=== PATIENT | female | born 1980 | race Caucasian/White ===

== ENCOUNTER 2018-02-21 10:59 | Emergency (ER) | payer OTHER ==
--- OUTSIDE RECORDS SUMMARY | 2018-02-21 11:26 | XMS REPORT | Continuity of Care Document ---
:1980 External Reference #:[id number] Author Name Betty Hampton M.D. Address [address] [place] [address] Care Team Providers Name Role Phone Megan Valdes MD Care Team Information Director Of Promotions Unavailable Megan Valdes MD Primary Care Physician Unavailable Payers Type Date Identification Numbers Payment Provider Subscriber Effective: 2016 Policy Number: [id number] [facility] Felecia Rojas Group Number: [id number] [id number] Group Name: [place] [address] PayID: [id number] Advance Directives Description No Information Available Problems Date Description Provider Status Onset: 11/19/2017 Exacerbation of moderate persistent Betty Hampton M.D. Active asthma Onset: 07/29/2017 Mild persistent asthma Betty Hampton M.D. Active Onset: 02/12/2017 Mild intermittent asthma Betty Hampton M.D. Active Onset: 02/12/2017 Chronic allergic conjunctivitis Betty Hampton M.D. Active Onset: 02/12/2017 Idiopathic urticaria Betty Hampton M.D. Active Onset: 02/12/2017 Allergic rhinitis due to animals Betty Hampton M.D. Active Onset: 02/12/2017 Allergic rhinitis due to pollen Betty Hampton M.D. Active Family History Date Family Member(s) Problem(s) Comments General Seasonal Allergies General Asthma General Gastroesophageal Reflux Disease (GERD) General Migraine General Hypertension General sinus disorders Father Seasonal Allergies Father Hypertension Mother Seasonal Allergies Mother Asthma Mother Gastroesophageal Reflux Disease (GERD) Mother Migraine Mother sinus disorders Social History Type Date Description Comments Sex Unknown Lives With Spouse Lives With Sons Home Environment Uses air cfo Home Environment Has central air Home Environment The basement is damp and dehumidifier used Home Environment Uses a dehumidifier Home Environment Mattress is 10 years old Home Environment Pillows are polyester Home Environment There are draperies in the home Home Environment The home is govind Home Environment The floors are carpeted including BR Home Environment The floors are tile Home Environment The floors are wood Home Environment [place] Home Environment Water Source: Well Smoke-Free Home is smoke-free Smoke-Free Work is smoke-free Pets 1 dog present 10 years, allowed in [place] Pets 2 cats present 13 years and 12 years, allowed in [place] Pets Animals sleep in bedroom Occupation Fundraising Mainly office work [employer] Hobbies: gardening wears gloves, Spouse: fast food delivery driver, [place] ETOH Use Rarely consumes alcohol Tobacco Use Start: Unknown Patient has never smoked Recreational Drug Use Denies Drug Use Allergies, Adverse Reactions, Alerts Description No Known Drug Allergies Medications Medication Date Status Form Strength Qnty SIG Indications Ordering Provider Azelastine Active Solution 0.05% 1units 1 drop J30.1 Betty HCL 017 both McNairn, (Ophthalmic) eyes M.D. twice a day Sara Active Tablets 180mg 30tabs 1 by Betty Allergy 017 mouth McNairn, every M.D. day Proair HFA Active Aerosol 108(90Base) [place], 000 mcg/Act Megan Ace MD Mirena (52 Active IUD 20mcg/24HR Unknown MG) 000 Trelegy Hx 1 puff Unknown 000 - once daily 018 Immunizations CPT Code Status Date Vaccine Lot # [id number] Given Unknown Influenza Vaccine 57102 Given Unknown Influenza Vaccine Vital Signs Date Vital Result Comment 01/20/2018 3:06pm Height 67 inches 5'7" Weight 158.00 lb Weight 71.669 kg Respiratory Rate 20 /min Heart Rate 76 /min O2 % BldC Oximetry 98 % BP Systolic 123 mmHg BP Diastolic 69 mmHg Asthma Control Test 23 Fractional Exhaled Nitric Oxide 72 BMI (Body Mass Index) 24.7 kg/m2 12/16/2017 9:35am Height 67 inches 5'7" Weight 164.00 lb Weight 74.390 kg Respiratory Rate 20 /min Heart Rate 71 /min O2 % BldC Oximetry 98 % BP Systolic 130 mmHg BP Diastolic 68 mmHg Fractional Exhaled Nitric Oxide 79 BMI (Body Mass Index) 25.7 kg/m2 11/19/2017 11:48am Height 67 inches 5'7" Weight 161.00 lb Weight 73.030 kg Respiratory Rate 20 /min Heart Rate 67 /min O2 % BldC Oximetry 98 % BP Systolic 116 mmHg BP Diastolic 73 mmHg Asthma Control Test 22 Fractional Exhaled Nitric Oxide 85 BMI (Body Mass Index) 25.2 kg/m2 07/29/2017 11:35am Height 67 inches 5'7" Weight 159.00 lb Weight 72.122 kg Respiratory Rate 20 /min Heart Rate 70 /min O2 % BldC Oximetry 98 % BP Systolic 116 mmHg BP Diastolic 66 mmHg Asthma Control Test 21 Fractional Exhaled Nitric Oxide 96 BMI (Body Mass Index) 24.9 kg/m2 02/26/2017 11:08am Height 67 inches 5'7" Weight 159.00 lb Weight 72.122 kg Respiratory Rate 20 /min Heart Rate 79 /min O2 % BldC Oximetry 98 % BP Systolic 132 mmHg BP Diastolic 68 mmHg BMI (Body Mass Index) 24.9 kg/m2 02/12/2017 9:08am Height 67 inches 5'7" Weight 157.00 lb Weight 71.215 kg Respiratory Rate 18 /min Heart Rate 71 /min O2 % BldC Oximetry 98 % BP Systolic 119 mmHg BP Diastolic 77 mmHg BMI (Body Mass Index) 24.6 kg/m2 Results Description No Information Available Procedures Date Code Description Status 01/20/2018 43014 Nitric Oxide Gas Determination Completed 12/16/2017 75972 Nitric Oxide Gas Determination Completed 11/19/2017 21385 Nitric Oxide Gas Determination Completed 11/19/2017 00809 Pre PFT Completed 07/29/2017 45923 Nitric Oxide Gas Determination Completed 02/26/2017 88215 Pre PFT Completed 02/12/2017 20739 Skin Test Scratch # Of Units ____ Completed 02/12/2017 66289 Pulmonary Function Test Completed Encounters Type Date Location Provider Dx Diagnosis Office Visit 11/19/2017 [facility] Hampton M.D. J45.41 Moderate persistent 11:40a asthma with (acute) exacerbation J30.1 Allergic rhinitis due to pollen J30.81 Allergic rhinitis due to animal (cat) (dog) hair and dander L50.1 Idiopathic urticaria Office Visit 07/29/2017 11:20a Crystal Modi45.30 Mild persistent M.D. asthma, uncomplicated J30.1 Allergic rhinitis due to pollen J30.81 Allergic rhinitis due to animal (cat) (dog) hair and dander L50.1 Idiopathic urticaria Office Visit 02/26/2017 11:00a [facility] J45.20 Mild intermittent M.D. asthma, uncomplicated J30.1 Allergic rhinitis due to pollen J30.81 Allergic rhinitis due to animal (cat) (dog) hair and dander L50.1 Idiopathic urticaria H10.45 Other chronic allergic conjunctivitis Office Visit 02/12/2017 9:00a [facility] Hampton M.D. J30.1 Allergic rhinitis due to pollen J30.81 Allergic rhinitis due to animal (cat) (dog) hair and dander L50.1 Idiopathic urticaria H10.45 Other chronic allergic conjunctivitis J45.20 Mild intermittent asthma, uncomplicated Plan of Treatment Future Appointment(s):05/19/2018 11:40 am - Betty Hampton M.D. at [id number] - Betty Hampton M.D.J45.20 Mild intermittent asthma, ilahglqeuarzrH04.81 Allergic rhinitis due to animal (cat) (dog) hair and ebmqcjN90.1 Allergic rhinitis due to pollenFollow up:May 2018 Clarice PRE CHECK-UP/FOLLOW UP VISIT: Continued management of patient's medical care.Recommendations:Refrain from wearing perfumes/scented colognes while visiting our office. Clarice performed reviewed, this is your best result yet even though it is high (currently 72 ppb ) At this point I think we can watch and wait before we start any other inhaler steroids at least at this point Do use the ProAir as needed for cough/wheeze or trouble breathing Consider the Azelestine eye drops Agree with stopping all plug in's or air fresheners in the home
[2018-02-21 11:31] VITALS: BP 112/65
--- NOTE | 2018-02-21 12:07 | ED ---
GI/ HPI - HPI Summary HPI Summary: Patient presents with UTI symptoms past 2 days. She reports urinary frequency and dysuria in her lower pelvic area. Mild chills this morning. She's had UTI' s in the past and reports this feels same. She denies fever, nausea, vomiting, diarrhea, abdominal pain, flank pain, vaginal itching/irritation/discharge. She has Mirena and reports she gets intermittent bloody spotting which she's been experiencing over the past couple days. Sexually active but reports voiding after intercourse, wipes front to back and denies recent constipation/ diarrhea. In regards to events leading up to the symptoms, she reports she has not been drinking as much water as usual and holding her urine longer than usual. Has had pyridium the past and would like to try this for pain relief at this time. - History of Current Complaint Chief Complaint: UCGU Time Seen by Provider: 02/21/18 11:50 Stated Complaint: URINARY ISSUE Hx Obtained From: Patient Hx Last Menstrual Period: 02/01/18 Pain Intensity: 5 - Allergy/Home Medications Allergies/Adverse Reactions: Allergies Allergy/AdvReac Type Severity Reaction Status Date / Time No Known Allergies Allergy Verified 02/21/18 11:32 Home Medications: Home Medications Albuterol HFA INHALER* [Ventolin HFA Inhaler*] 2 puff INH Q4H PRN 02/21/18 [ History Confirmed 02/21/18] Beclomethasone 40 MCG MDI(NF) [Qvar 40 MCG MDI(NF)] 2 puff INH BID 02/21/18 [ History Confirmed 02/21/18] PMH/Surg Hx/FS Hx/Imm Hx Previously Healthy: Yes Endocrine/Hematology History: Denies: Hx Diabetes, Hx Thyroid Disease Cardiovascular History: Denies: Hx Hypertension Respiratory History: Reports: Hx Asthma Denies: Hx Chronic Obstructive Pulmonary Disease (COPD) GI History: Denies: Hx Ulcer History: Reports: Other Problems/Disorders - UTI's Denies: Hx Kidney Infection, Hx Kidney Stones - Surgical History Surgery Procedure, Year, and Place: 2c sections. aproscopic cyst removal. wisdom teeth Infectious Disease History: No Infectious Disease History: Denies: Hx Hepatitis, Hx Human Immunodeficiency Virus (HIV), Traveled Outside the [place] in Last 30 Days - Social History Lives: With Family - 2 kids Alcohol Use: Occasionally Hx Substance Use: No Substance Use Type: Reports: None Hx Tobacco Use: No Smoking Status (MU): Never Smoked Tobacco Review of Systems Positive: Chills. Negative: Fever, Fatigue Cardiovascular: Negative Respiratory: Negative Gastrointestinal: Negative Positive: see HPI Musculoskeletal: Negative Skin: Negative Neurological: Negative Psychological: Normal All Other Systems Reviewed And Are Negative: Yes Physical Exam Triage Information Reviewed: Yes Vital Signs On Initial Exam: Initial Vitals Temp Pulse Resp BP Pulse Ox 97.6 F 72 18 112/65 100 02/21/18 11:27 02/21/18 11:27 02/21/18 11:27 02/21/18 11:27 02/21/18 11:27 Vital Signs Reviewed: Yes Appearance: Positive: Well-Appearing, No Pain Distress, Well-Nourished Skin: Positive: Warm, Skin Color Reflects Adequate Perfusion, Dry Head/Face: Positive: Normal Head/Face Inspection Eyes: Positive: Normal, EOMI, Conjunctiva Clear - anicteric sclera ENT: Positive: Normal ENT inspection, Hearing grossly normal, Pharynx normal - mucosa moist Respiratory/Lung Sounds: Positive: Breath Sounds Present. Negative: Rales, Rhonchi, Wheezes Cardiovascular: Positive: Normal, RRR Abdomen Description: Positive: Nontender, No Organomegaly, Soft, Other: - suprapubic palpation triggers urge to urinate. Negative: CVA Tenderness (R), CVA Tenderness (L), Distended, Guarding Bowel Sounds: Positive: Present Pelvic Exam: Positive: Other - deferred Musculoskeletal: Positive: Normal, Strength/ROM Intact Neurological: Positive: Normal, Sensory/Motor Intact, Alert, Oriented to Person Place, Time, CN Intact II-III Psychiatric: Positive: Normal Diagnostics - Vital Signs Vital Signs Temp Pulse Resp BP Pulse Ox 02/21/18 11:27 97.6 F 72 18 112/65 100 - Laboratory Lab Results: Lab Results 02/21/18 02/21/18 Range/Units 11:52 11:53 POC Urine Color Yellow POC Urine Clarity Slightly cloudy POC Urine pH 5.5 (5-9) POC Ur Specif [place] 1.010 (1.010-1.030) POC Urine Protein Negative (Negative) POC Ur Glucose (UA) Negative (Negative) POC Urine Ketones Negative (Negative) POC Urine Blood Trace-intact A (Negative) POC Urine Nitrite Negative (Negative) POC Urine Bilirubin Negative (Negative) POC Urine Urobilinogen 0.2 (Negative) POC U Leukocyte Esteras 2+ A (Negative) POC Ur Test Negative (Negative) Lab Statement: Any lab studies that have been ordered have been reviewed, and results considered in the medical decision making process. GIGU Course/Dx - Course Course Of Treatment: + luek and trace blood on U/A - suspect UTI. Reviewed tx plan and f/u care as well as danger s/sx of when to go to ED. Pt agrees w/ plan. - Diagnoses Provider Diagnoses: UTI (urinary tract infection) Discharge - Sign-Out/Discharge Documenting (check all that apply): Patient Departure All imaging exams completed and their final reports reviewed: No Studies - Discharge Plan Condition: Stable Disposition: HOME Prescriptions: Phenazopyridine 200 mg (NF) [Pyridium 200 MG tab *] 200 mg PO TID PRN #6 tab PRN Reason: Pain Sulfamethox/Trimethoprim DS* [Bactrim DS 800/160 TAB*] 1 tab PO BID #6 tab Patient Education Materials: Urinary Tract Infection in Women (ED) Referrals: Megan Valdes MD [Primary Care Provider] - Additional Instructions: Stay hydrated Urinate with urge Take medications as directed Follow-up with PCP if no change Go to ED if worse - Billing Disposition and Condition Condition: STABLE Disposition: Home
== END 2018-02-21 12:13 | disposition home or self-care (01) ==
LOC: UCEAST 10:59
DX: N39.0 Urinary tract infection, site not specified (principal)
CPT/HCPCS: 81003; 84702; 87086; 99212; G0463